=== PATIENT | male | born 1950 | race Caucasian/White ===

== ENCOUNTER 2023-10-22 13:03 | Outpatient (AMB) | payer MEDICARE, SELFPAY ==
--- NOTE | 2023-10-22 13:11 | AM.OFFWIN_ITS ---
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 He reports that the symptoms continued over night, but had resolved by this morning. He reports that the initial episode of vomiting did look like there was blood, but that it did not persist (and could have been the tomato sauce from the food). No bloody or c offee ground stools. He takes medication for hypertension and blood thinners for a clotting history. He currently denies abdominal pain, chest pain, shortness of breath, persistent nausea vomiting or diarrhea, dizziness or weakness, myalgias or malaise, fever or chills, or other significant associated symptoms. is very concerned because patient has a planned oral surgery procedure in 3 days, and she wants to be sure that he is safe to have his surgery. She reports having called his oral surgeon who is requesting kidney function lab work be done prior to his procedure, and would like me to order it. Reviewed past medical history Review of Systems Const All systems reviewed & are unremarkable except as noted in HPI and below Physical Exam Vital Signs: Last Vital Signs Temp 97.7 F 10/22/23 13:13 Pulse 81 10/22/23 13:13 BP 92/60 10/22/23 13:13 Pulse Ox 95 10/22/23 13:13 Oxygen Delivery Method Room Air 10/22/23 13:13 BMI result Body Mass Index 27.7 Const General: cooperative, healthy appearing, comfortable, no acute distress, alert, awake, Physically active and well groomed; No anxious, diaphoretic, ill appearing, intoxicated appearing, poor hygiene or tired appearing Nutritional Appearance: average body habitus Orientation/consciousness: oriented to person Limitations: no limitations Chest Chest palpation & inspection: normal palpation of entire chest wall Resp Effort & Inspection: normal respiratory effort, able to speak in complete sentences, no audible wheezes, no cough, no grunting, not labored, no nasal flaring, no retractions and symmetric chest movement Auscultation: clear to auscultation bilaterally, no crackles, no rales, no rhonchi, no wheezes, lung sounds not diminished and No rub present Cardio Rate: regular rate GI Palpation (GI): Soft to palpation, not firm, nontender, no guarding, not rigid, No hepatosplenomegaly present and Other GI palpation findings present (Obese abdomen) Auscultation: normal bowel sounds General: Yes no CVA tenderness Back/Spine/Pelvis Back: no CVA tenderness Skin Other: Good color, warm and dry Neuro General: oriented to person Psych Appearance: grossly normal Mental Status: mental status grossly normal Speech and movement: Normal speech and movement present Affect: normal affect Attitude: cooperative Thought process: Normal thought process present Insight: Good insight present (Psych) Judgement: Good judgement present (Psych) Assessment & Plan Assessment & Plan (1) Vomiting: Code(s): R11.10 - Vomiting, unspecified Qualifiers: Nausea presence: without nausea Vomiting type: unspecified Qualified Code(s): R11.11 - Vomiting without nausea Plan: Resolved vomiting and diarrhea, likely gastroenteritis versus food-borne source, and he is currently asymptomatic with overall stable exam with normal abdomen, although he is hypotensive. I advised increasing water intake until his urine is light yellow or almost clear. We also discussed starting with a very bland diet over the next few days, and to advance as tolerated. Patient declined Zofran for nausea, as he states that he does not feel nauseous any longer. We discussed the role of antibiotics with gastroenteritis, that could be due to food-borne infection, but with having resolved symptoms for the course of the day now, we will hold off. He will follow-up if symptoms persist or worsen. His asked if I would order blood work that apparently his oral surgeon had requested, for his planned procedure in 3 days, which I agreed to order. Pending results. Orders: Orders Basic Metabolic Panel 10/22/23 R11.10 - Vomiting, unspecified Coding Level of Care Code New Pt Level 4 (23309) Diagnoses Vomiting without nausea, unspecified vomiting type R11.11 Nausea presence: without nausea Vomiting type: unspecified
[2023-10-22 13:13] VITALS: BP 92/60; PULSE 81; TEMP 36.5; O2SAT 95; BMI 27.7
== END 2023-10-22 14:40 | disposition home or self-care (01) ==
PROVIDERS: PCP Internal Medicine; Visit Provider Physician Assistant Medical
DX: R11.11 Vomiting without nausea (principal)
CPT/HCPCS: 99204

== ENCOUNTER 2023-10-22 13:51 | Outpatient (REF) | payer MEDICARE, SELFPAY ==
[2023-10-22 15:25] LABS: Anion Gap 13 (12-20); Blood Urea Nitrogen 18 mg/dL (9-16); Calcium 9.4 mg/dL (8.4-10.2); Carbon Dioxide 27 mmol/L (22-29); Chloride 106 mmol/L (96-108); Estimated Glomerular Filt Rate > 60; Glucose Random 97 mg/dL (60-115); Potassium 4.3 mmol/L (3.3-5.1); Sodium 142 mmol/L (135-145)
== END 2023-10-22 13:52 | disposition home or self-care (01) ==
LOC: HO.HMGCLDS 13:51
PROVIDERS: Visit Provider Physician Assistant Medical
DX: R11.10 Vomiting, unspecified (principal)
CPT/HCPCS: 36415; 80048